=== PATIENT | female | born 1995 | race Caucasian/White ===

== ENCOUNTER → 2019-06-04 | Outpatient (REF) | payer BC ==
[2019-06-04 11:36] LABS: BASO % 0.5 % (0.0-1.0); EOS # 0.1 10^3/uL (0.0-0.5); HEMATOCRIT 40.6 % (36.0-47.0); HEMOGLOBIN 13.6 g/dl (12.0-15.5); LYMPH % 24.7 % (24.0-44.0); MEAN CORPUSCULAR HEMOGLOBIN 28.6 pg (27.0-33.0); MEAN CORPUSCULAR HGB CONC 33.5 g/dl (32.0-36.5); MEAN CORPUSCULAR VOLUME 85.5 fl (80.0-96.0); MONO # 0.5 10^3/uL (0.0-0.8); MONO % 6.2 % (0.0-5.0); NEUTROPHILS # 5.5 10^3/uL (1.5-8.5); NEUTROPHILS % 67.4 % (36.0-66.0); PLATELET COUNT, AUTOMATED 249 10^3/uL (150-450); RED BLOOD COUNT 4.75 10^6/uL (4.00-5.40); WHITE BLOOD COUNT 8.2 10^3/uL (4.0-10.0)
[2019-06-04 11:47] LABS: ALT/SGPT 26 U/L (12-78); BILIRUBIN,TOTAL 0.6 MG/DL (0.2-1.0); BLOOD UREA NITROGEN 14 MG/DL (7-18); CARBON DIOXIDE LEVEL 25 MEQ/L (21-32); CHLORIDE LEVEL 110 MEQ/L (98-107); CHOLESTEROL LEVEL 166 MG/DL (<200); FREE T4 1.07 NG/DL (0.76-1.46); GLOMERULAR FILTRATION RATE > 60.0 (>60); GLUCOSE, FASTING 90 MG/DL (70-100); HDL CHOLESTEROL 33 MG/DL (>40); LDL CHOLESTEROL 101 MG/DL (<100); NON-HDL-C 133 MG/DL; SODIUM LEVEL 140 MEQ/L (136-145); TOTAL PROTEIN 7.5 GM/DL (6.4-8.2); TRIGLYCERIDES LEVEL 158 MG/DL (<150)
== END ==
LOC: M SFHCCLAY 08:19
PROVIDERS: ATTEND Nurse Practitioner Family
DX: E03.9 Hypothyroidism, unspecified (principal); G43.109 Migraine with aura, not intractable, without status migrainosus

== ENCOUNTER → 2019-11-03 | Outpatient (CLI) | payer BC ==
[~2019-11-03] MED LIST: ISOVUE-370 76% 100ML VIAL As Ordered ONE
--- NOTE | 2019-12-01 07:20 | REP ---
HYSTEROSALPINGOGRAM: 14-VIEWS HISTORY: Primary infertility. Fluoroscopy time is 0.3 minutes. Fluoroscopic guidance is provided and fluoroscopic spot films are obtained. FINDINGS: The uterine endometrial cavity is normal in appearance. No filling defect is seen. Isthmic and ampullary segments of the fallopian tubes opacify symmetrically and there is bilateral free spillage into the peritoneum documenting tubal patency. Surgical clips are noted in the right pelvis and right mid-abdomen. IMPRESSION: Normal hysterosalpingogram. Bilateral tubal patency is documented. MTDD
== END ==
LOC: M RADPRO 11:31
PROVIDERS: ATTEND Obstetrics & Gynecology
DX: N97.9 Female infertility, unspecified (principal)
CPT/HCPCS: 58340; 74740; Q9967

== ENCOUNTER → 2020-02-08 | Outpatient (CLI) | payer BC | LOC: M WUC 11:56 | PROVIDERS: ATTEND Obstetrics & Gynecology Reproductive Endocrinology | DX: E28.9 Ovarian dysfunction, unspecified (principal) ==

== ENCOUNTER → 2020-02-22 | Outpatient (CLI) | payer BC | LOC: M LABSMTC 13:49 | PROVIDERS: ATTEND Pediatrics | DX: Z20.828 Contact with and (suspected) exposure to other viral communicable diseases (principal) ==

== ENCOUNTER → 2020-03-30 | Outpatient (REF) | payer BC ==
[2020-03-30 13:53] LABS: ESTRADIOL 95.1 PG/ML; PROGESTERONE 20.38 NG/ML
== END ==
LOC: M LABDRWAD 12:16
PROVIDERS: ATTEND Obstetrics & Gynecology Reproductive Endocrinology
DX: E28.9 Ovarian dysfunction, unspecified (principal)

== ENCOUNTER → 2020-04-04 | Outpatient (REF) | payer BC ==
[2020-04-04 13:25] LABS: PROGESTERONE 20.53 NG/ML
== END ==
LOC: M LABDRWAD 12:26
PROVIDERS: ATTEND Obstetrics & Gynecology Reproductive Endocrinology
DX: Z32.00 Encounter for pregnancy test, result unknown (principal)

== ENCOUNTER → 2020-04-06 | Outpatient (REF) | payer BC ==
[2020-04-06 13:17] LABS: THYROID STIMULATING HORMONE 3.12 uIU/ML (0.358-3.740)
[2020-04-06 13:21] LABS: ESTRADIOL 145.3 PG/ML; PROGESTERONE 17.46 NG/ML
== END ==
LOC: M LABDRWAD 12:21
PROVIDERS: ATTEND Obstetrics & Gynecology Reproductive Endocrinology
DX: Z32.01 Encounter for pregnancy test, result positive (principal)

== ENCOUNTER → 2020-04-11 | Outpatient (REF) | payer BC ==
[2020-04-11 13:51] LABS: PROGESTERONE 15.71 NG/ML
[2020-04-11 13:53] LABS: ESTRADIOL 167.6 PG/ML
== END ==
LOC: M LABDRWAD 12:41
PROVIDERS: ATTEND Obstetrics & Gynecology Reproductive Endocrinology
DX: O09.00 Supervision of pregnancy with history of infertility, unspecified trimester (principal)

== ENCOUNTER → 2020-04-18 | Outpatient (REF) | payer BC ==
[2020-04-18 13:26] LABS: ESTRADIOL 222.6 PG/ML; PROGESTERONE 19.7 NG/ML
== END ==
LOC: M LABDRWAD 10:17
PROVIDERS: ATTEND Obstetrics & Gynecology Reproductive Endocrinology
DX: O09.00 Supervision of pregnancy with history of infertility, unspecified trimester (principal)

== ENCOUNTER → 2020-06-08 | Outpatient (REF) | payer BC ==
[2020-06-08 17:43] LABS: HEMATOCRIT 40.8 % (36.0-47.0); HEMOGLOBIN 13.6 g/dl (12.0-15.5); MEAN CORPUSCULAR HEMOGLOBIN 28.6 pg (27.0-33.0); MEAN CORPUSCULAR HGB CONC 33.3 g/dl (32.0-36.5); MEAN CORPUSCULAR VOLUME 85.9 fl (80.0-96.0); PLATELET COUNT, AUTOMATED 257 10^3/uL (150-450); RED BLOOD COUNT 4.75 10^6/uL (4.00-5.40); WHITE BLOOD COUNT 12.1 10^3/uL (4.0-10.0)
[2020-06-08 18:17] LABS: FREE T4 1.05 NG/DL (0.76-1.46)
[2020-06-08 18:46] LABS: CHLAMYDIA DNA AMPLIFICATION NEGATIVE (NEGATIVE); GC DNA AMPLIFICATION NEGATIVE (NEGATIVE)
[2020-06-08 18:53] LABS: HEPATITIS C VIRUS ABY INDEX 0.1 INDEX (<0.8); HIV 1&2 SCREEN CENTAUR NEGATIVE (NEGATIVE)
== END ==
LOC: M PLALAB 15:01
PROVIDERS: ATTEND Advanced Practice Midwife
DX: O09.812 Supervision of pregnancy resulting from assisted reproductive technology, second trimester (principal); O99.282 Endocrine, nutritional and metabolic diseases complicating pregnancy, second trimester

== ENCOUNTER → 2020-07-20 | Outpatient (CLI) | payer BC ==
--- NOTE | 2020-07-21 06:33 | REP ---
INDICATION: ANATOMY COMPARISON: None. TECHNIQUE: Transabdominal obstetrical ultrasound with color Doppler evaluation. FINDINGS: Examination demonstrates a single live intrauterine in cephalic presentation. motion is identified by technologist. Placenta is noted anterior and grade 1 without evidence for placenta previa or abruption. Amniotic fluid volume is normal. Cervix measures 3.1 cm in length and appears closed.. Gestational age by LMP nineteen weeks 2 days with AUNDREA 12/12/2020. Gestational age by current measurements 19 weeks 2 days with AUNDREA 12/12/2020. FHR equals 152 beats per minute. Estimated weight 277 grams (38thpercentile). Anatomical assessment demonstrates normal structures including cranium, choroid plexus, cavum, cerebellum/posterior fossa, facial features, lungs, four-chamber heart/ventricular outflow tracts, diaphragm, stomach, cord insertion/three-vessel cord, kidneys/bladder, spine, and extremities. Incidental note is made of a maternal periumbilical fat containing hernia a peritoneal defect of approximately 9 mm. IMPRESSION: 1. Single live intrauterine in cephalic presentation demonstrating appropriate estimated weight. Anatomical assessment is complete and normal. 2. Findings suggesting small maternal periumbilical fat containing hernia. <Electronically signed by Juan Manuel Leroy > 07/21/20 [id number]
== END ==
LOC: M WHC 14:31
PROVIDERS: ATTEND Advanced Practice Midwife
DX: Z34.82 Encounter for supervision of other normal pregnancy, second trimester (principal)

== ENCOUNTER → 2020-09-21 | Outpatient (REF) | payer BC ==
[2020-09-21 12:52] LABS: HEMATOCRIT 38.3 % (36.0-47.0); HEMOGLOBIN 12.6 g/dl (12.0-15.5); MEAN CORPUSCULAR HEMOGLOBIN 29.4 pg (27.0-33.0); MEAN CORPUSCULAR HGB CONC 32.9 g/dl (32.0-36.5); MEAN CORPUSCULAR VOLUME 89.3 fl (80.0-96.0); PLATELET COUNT, AUTOMATED 231 10^3/uL (150-450); RED BLOOD COUNT 4.29 10^6/uL (4.00-5.40); WHITE BLOOD COUNT 11.4 10^3/uL (4.0-10.0)
[2020-09-21 13:55] LABS: FREE T4 0.84 NG/DL (0.76-1.46); THYROID STIMULATING HORMONE 1.81 uIU/ML (0.358-3.740)
== END ==
LOC: M PLALAB 10:33 → M SFHCADAM 10:34
PROVIDERS: ATTEND Advanced Practice Midwife
DX: Z36.89 Encounter for other specified antenatal screening (principal); Z3A.25 25 weeks gestation of pregnancy

== ENCOUNTER → 2020-11-10 | Outpatient (REF) | payer BC | LOC: M SFHCWAGY 16:55 | PROVIDERS: ATTEND Advanced Practice Midwife | DX: Z34.93 Encounter for supervision of normal pregnancy, unspecified, third trimester (principal); Z3A.35 35 weeks gestation of pregnancy ==

== ENCOUNTER 2020-12-01 22:09 | Inpatient (IN) | payer BC ==
[~2020-12-01] VITALS: Ht 162.6 cm; Wt 103.5 kg
[2020-12-01] MEDS ORDERED: OXYTOCIN DRIP 30 UNITS in IV 1 EA IV PRN (22:20)
[2020-12-01] MEDS ORDERED: LIDOCAINE 1% MDV 20ML VIAL INFIL PRN (22:20)
[2020-12-01] MEDS ORDERED: CARBOPROST TROMETHAMINE 250 MCG/ML AMP IM PRN (22:20)
[2020-12-01] MEDS ORDERED: OXYTOCIN DRIP 30 UNITS in IV 1 EA IV SCH (22:20)
[2020-12-01] MEDS ORDERED: LR 1,000 ML IV SCH (22:20)
[2020-12-01] MEDS ORDERED: METHYLERGONOVINE MALEATE 0.2 MG/ML VIAL (J2210) IM PRN (22:20)
[2020-12-01] MEDS ORDERED: OXYTOCIN INJ 10 UNITS/ML VIAL (J2590) IM PRN (22:20)
[2020-12-01] MEDS ORDERED: TRANEXAMIC ACID INJection 1,000 MG in NS 100 ML IV PRN (22:20)
--- NOTE | 2020-12-01 22:33 | HPEPDOC ---
Obstetrical History & Physical General Date of Admission Dec 01, 2020 at 22:09 History of Present Illness 25yo G1 at 38w3d by IVF transfer presents with leakage of clear fluid. 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 BREAST: . ABDOMEN: Gravid and non-tender to touch. FETUS: Is vertex (VTX) by sterile vaginal examination (SVE), fetus is vertex (VTX) by Calvin. HEART RATE: Regular rate and rhythm. LUNGS: Clear to auscultation (CTA). Pertinent Laboratoy Data Blood Type: O+ RBC Antibody Screen: Negative HIV: Negative Hepatitis B: Negative Hepatitis C: Negative Rapid Plasma Reagin: Nonreactive Rubella: Immune Chlamydia/Gonorrhea: Negative Group B Streptococcus: Negative Glucose Tolerance Test: 92 Anatomy Ultrasound Placenta Location: Anterior Normal Anatomy: Yes Placenta Previa: No Vaginal Examination Dilation: 1cm Effacement: 70% Station: -2 Cervical Consistency: Soft Cervical Position: Middle Presentation: Cephalic presentation (Grossly ruptured) Assessment Variability: Moderate Accelerations: Positive Tocometer Contractions: Yes Frequency: irregular Assessment/Plan Assessment 25-year-old 1 at 38 weeks 2 days with premature rupture of membranes Reassuring status Plan 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 Group B Streptococcus (GBS) negative. Labs and intravenous (IV) per unit protocol. Counseled on Pitocin and induction of labor (IOL). Anticipate normal spontaneous delivery (). C-S as appropriate. JOSÉ MIGUEL PACHECO MD. Dec 01, 2020 22:33
[2020-12-01 22:40] VITALS: BP 139/86
[2020-12-01] MEDS ORDERED: PRENTAB9 PO (22:42)
[2020-12-01] MEDS ORDERED: LEVO50TA5 PO (22:44)
[2020-12-01] MEDS ORDERED: MAGN400C PO (22:44)
[2020-12-01] MEDS ORDERED: COQ150CH PO (22:44)
[2020-12-01] MEDS ORDERED: FOLTTAB9 PO (22:44)
[2020-12-02] VITALS (29 sets, daily range): BP systolic 105–191; BP diastolic 52–104
[2020-12-02 00:13] LABS: HEMATOCRIT 34.6 % (36.0-47.0); HEMOGLOBIN 11.9 g/dl (12.0-15.5); MEAN CORPUSCULAR HGB CONC 34.4 g/dl (32.0-36.5); MEAN CORPUSCULAR VOLUME 84.4 fl (80.0-96.0); PLATELET COUNT, AUTOMATED 237 10^3/uL (150-450); WHITE BLOOD COUNT 11.6 10^3/uL (4.0-10.0)
[2020-12-02] MEDS ORDERED: LABETALOL 100MG/20ML VIAL IV STA (00:59)
[2020-12-02] MEDS ORDERED: PROMETHAZINE INJ 25 MG/ML VIAL (J2550) IV ONE (01:00)
[2020-12-02] MEDS ORDERED: BUTORPHANOL 2 MG/ML INJ (J0595) IV ONE (01:00)
[2020-12-02 01:14] LABS: ALT/SGPT 19 U/L (12-78); BILIRUBIN,TOTAL 0.3 MG/DL (0.2-1.0); GLOMERULAR FILTRATION RATE > 60.0 (>60); LDH LACTATE DEHYDROGENASE 169 U/L (84-246); URIC ACID 3.7 MG/DL (2.6-6.0)
[2020-12-02] MEDS ORDERED: FENTANYL 2MCG/ML ROPIVACAINE 0.2% IN 0.9% NACL 100ML IVBAG As Ordered ONE (01:40)
[2020-12-02] MEDS ORDERED: ePHEDrine SULFATE 25 MG/5 ML(5MG/ML) SYRINGE As Ordered ONE (04:15)
[2020-12-02] MEDS ORDERED: EPIDURAL/PCA KEYS XX PRN (04:20)
[2020-12-02] MEDS ORDERED: REFRIGERATOR IV KEYS XX PRN (04:20)
[2020-12-02] MEDS ORDERED: LACTATED RINGER'S 1000 ML IV PRN (04:20)
[2020-12-02] MEDS ORDERED: ePHEDrine SULFATE 25 MG/5 ML(5MG/ML) SYRINGE IV PRN (04:20)
[2020-12-02] MEDS ORDERED: NALOXONE INJ 0.4MG/1ML VIAL (J2310 PER 1MG) IV PRN (04:20)
[2020-12-02] MEDS ORDERED: ONDANSETRON 4MG/2ML VIAL IV PRN (04:20)
[2020-12-02] MEDS ORDERED: FENTANYL/ROPIVACAINE/NACL BAG 100 ML EPIDURAL SCH (04:20)
[2020-12-02] MEDS ORDERED: EPIDURAL COMMENT XX SCH (04:20)
[2020-12-02] MEDS ORDERED: diphenhydrAMINE 50MG/ML VIAL (J1200) IV PRN (04:20)
[2020-12-02 09:23] LABS: CORD GAS HCO3 A 21.1 MEQ/L; CORD GAS O2 SAT A 46.1 %; CORD GAS PH A 7.103 UNITS; CORD GAS PO2 A 26.9 mmHg; CORD GAS SBC A 15.6 MEQ/L; CORD GAS TCO2 A 23.2 MEQ/L
[2020-12-02 09:23] LABS: CORD GAS ABE V -7.2; CORD GAS O2 SAT V 69.7 %; CORD GAS PCO2 V 40.9 mmHg; CORD GAS PH V 7.285 UNITS; CORD GAS PO2 V 32.4 mmHg; CORD GAS SBC V 18.1 MEQ/L; CORD GAS TCO2 V 20.3 MEQ/L
[2020-12-02] MEDS ORDERED: OXYTOCIN DRIP 30 UNITS in IV 1 EA IV SCH (09:40)
[2020-12-02] MEDS ORDERED: MEASLES,MUMPS,RUBELLA VACCINE INJ (MMR-II) (90707) SC SCH (09:40)
[2020-12-02] MEDS ORDERED: DOCUSATE SODIUM 100MG CAPSULE PO PRN (09:40)
[2020-12-02] MEDS ORDERED: DIBUCAINE 1% OINTMENT 30GM TOP PRN (09:40)
[2020-12-02] MEDS ORDERED: ACETAMINOPHEN 500 MG TAB PO PRN (09:40)
[2020-12-02] MEDS ORDERED: IBUPROFEN 600MG TAB PO PRN (09:40)
[2020-12-02] MEDS ORDERED: RHOGAM 300 MCG (1500 IU) INJ (J2790) IM SCH (09:40)
[2020-12-02] MEDS ORDERED: IBUPROFEN 800 MG TAB PO PRN (09:40)
--- NOTE | 2020-12-02 12:24 | DN ---
DELIVERY NOTE DATE OF DELIVERY: 12/02/2020 TIME OF : 0852 GENDER: Female APGARS: 7 and 9 LACERATIONS: Second-degree midline laceration ANESTHESIA: ESTIMATED BLOOD LOSS: 600 mL COUNTS: Correct and verified DESCRIPTION OF DELIVERY: Harriet is a 25-year-old 1 para 1-0-0-1 now, who was admitted to labor and delivery with premature rupture of membranes. I.V. Pitocin was started and labor ensued. She used an epidural for her labor coping. She reached complete dilation at 0600. Passive descent was employed and began pushing after 0800. She pushed to a normal spontaneous vaginal delivery of a live female infant in OA position with restitution to LOT position at 0852. There was a nuchal cord x1, loose, that was reduced manually at the time of delivery. The shoulders delivered with gentle downward traction and the corpus immediately followed. 's mouth and nares were bulb suctioned and was placed on the maternal abdomen for stimulation and bonding. The cord was clamped x2 and cut by the father of the baby under my direction. Spontaneous expulsion of an intact placenta with three-vessel cord by Restrepo mechanism was at 0858. Uterine hemostasis achieved with IV Pitocin rapid infusion, uterine fundal massage and Misoprostol 1,000 mcg per rectum. Estimated blood loss 600 mL. Perineum and vagina inspected and noted to have a second-degree midline laceration as well as an extension into the right labia. The laceration was repaired with 3-0 Vicryl Rapide in the usual fashion. The female weighed 7 pounds, 9 ounces (3420 grams), Apgars were 7 and 9. Mom is going to breastfeed her daughter and the family have named her [place]. At the close of delivery, lap counts, needle counts and instrument counts were correct and verified.
[2020-12-02] MEDS: ACETAMINOPHEN TAB 650MG DOSE (2X325MG) PO PRN (17:36)
[2020-12-03] MEDS: ACETAMINOPHEN TAB 650MG DOSE (2X325MG) PO PRN ×3 (01:12→22:58)
[2020-12-03 06:00] VITALS: BP 117/76
[2020-12-03] MEDS: PRENATAL VITAMINS CHEWABLE TABLET PO SCH (08:04)
[2020-12-03] MEDS ORDERED: INFLUENZA QUADRIVALENT PF VACCINE 0.5ML SYRINGE IM ONE (09:00)
--- NOTE | 2020-12-03 11:50 | IPNPDOC ---
Progress Note Date of Service: Dec 03, 2020 Day#: 1 Progress Note SUBJECT: Patient is doing well . Pain is well controlled with PO med ication. She is tolerating a diet. Ambulating and voiding without difficulty. Minimal lochia. Denies headaches, vision changes, RUQ pain. OBJECTIVE: VITAL SIGNS: Within normal limits, afebrile. Alert and oriented times three. Breath sounds clear to auscultation. Heart rate: Regular rate and rhythm, no murmurs, rubs or gallops. Abdomen: Fundus firm at U-2. Soft, NTTP. [Minimal] lochia. ASSESSMENT: Patient doing well on post day #1. Vitals within normal limits, afebrile, hemodynamically stable with no evidence of infection. PLAN: 1. Anticipate discharge tomorrow. 2. Tylenol and Motrin for pain. 3. Encourage breast feeding and ambulation. 4. Routine PP visit in 6 weeks in clinic. 5. Discussed return precautions at length. VS, I&O, 24H, Fishbone Vital Signs/I&O Vital Signs Date Time Temp Pulse Resp B/P (MAP) Pulse Ox O2 Delivery O2 Flow Rate FiO2 12/03/20 06:00 98.1 70 18 117/76 (90) 100 Room Air I&O- Last 24 Hours up to 6 AM 12/03/20 06:00 Intake Total 2903 ml Output Total 1100 ml Balance 1803 ml FLORINDA BLAIR MD Dec 03, 2020 11:50
[2020-12-03 17:36] VITALS: BP 121/62
[2020-12-04 06:10] VITALS: BP 146/96
[2020-12-04 08:00] VITALS: BP 146/96
[2020-12-04] MEDS: PRENATAL VITAMINS CHEWABLE TABLET PO SCH (08:08)
[2020-12-04] MEDS: ACETAMINOPHEN TAB 650MG DOSE (2X325MG) PO PRN ×2 (08:08→12:33)
--- NOTE | 2020-12-04 08:46 | IPNPDOC ---
Progress Note Date of Service: Dec 04, 2020 Day#: 2 Progress Note SUBJECT: Patient is a 25-year-old G 1 P 1 status post uncomplicated vaginal de livery at 38-3/7 weeks' doing well day #2. She has been ambulating, voiding spontaneously without issue and tolerating regular diet. Breast feeding without issue. Reports lochia is like a normal period. Patient is ambulating well. Reports some cramping, well controlled with medication. Voiding and ambulating without difficulty. Denies headaches vision changes or right upper quadrant pain. OBJECTIVE: VITAL SIGNS: Within normal limits, afebrile. Alert and oriented times three. Breath sounds clear to auscultation. Heart rate: Regular rate and rhythm, no murmurs, rubs or gallops. Abdomen: Fundus firm at U-2. Soft, NTTP. Minimal to moderate lochia. ASSESSMENT: Patient is a 18-year-old G 1 P 1 status post uncomplicated spontaneous vaginal delivery after presenting to labor and delivery with spontaneous rupture membranes. Doing well on day 2. Vitals within normal limits, afebrile, hemodynamically stable with no evidence of infection. PLAN: 1. Discharge to home today. 2. Tylenol and Motrin for pain. 3. Encourage breast feeding and ambulation. 4. Patient declined contraception 5. Patient to schedule blood pressure check in 1 week with routine PP visit in 6 weeks in clinic. 6. Discussed return precautions at length. VS, I&O, 24H, Fishbone Vital Signs/I&O Vital Signs Date Time Temp Pulse Resp B/P (MAP) Pulse Ox O2 Delivery O2 Flow Rate FiO2 12/04/20 08:00 97.8 88 18 146/96 99 Room Air FLORINDA BLAIR MD Dec 04, 2020 08:46
[2020-12-04] MEDS ORDERED: ACET-683 PO (08:49)
[2020-12-04] MEDS ORDERED: IBUP-1022 PO (08:49)
[2020-12-04] MEDS ORDERED: DOCU100C16 PO (08:49)
== END 2020-12-04 13:55 | disposition home or self-care (01) | DRG 560 ==
LOC: M LDI 22:09 → M OBS 12-02 14:05
PROVIDERS: ADMIT Obstetrics & Gynecology; ATTEND Obstetrics & Gynecology
PROC: 10E0XZZ Delivery of Products of Conception, External Approach (ICD-10-PCS; principal; 2020-12-02)
PROC: 0KQM0ZZ Repair Perineum Muscle, Open Approach (ICD-10-PCS; 2020-12-02)
DX: O42.02 Full-term premature rupture of membranes, onset of labor within 24 hours of rupture (principal); Z37.0 Single live birth; Z3A.38 38 weeks gestation of pregnancy; O70.1 Second degree perineal laceration during delivery; O69.81X0 Labor and delivery complicated by cord around neck, without compression, not applicable or unspecified

== ENCOUNTER → 2021-03-29 | Outpatient (REF) | payer BC ==
[~2021-03-29] MED LIST changes: +ACET-683 PO; +COQ150CH PO; +DOCU100C16 PO; +FOLTTAB9 PO; +IBUP-1022 PO; -ISOVUE-370 76% 100ML VIAL As Ordered ONE; +LEVO50TA5 PO; +MAGN400C PO; +PRENTAB9 PO
== END ==
LOC: M SFHCWAGY 10:22
PROVIDERS: ATTEND Advanced Practice Midwife
DX: Z12.4 Encounter for screening for malignant neoplasm of cervix (principal)

== ENCOUNTER → 2021-11-24 | Outpatient (REF) | LOC: M EMP 11:37 | PROVIDERS: ATTEND Family Medicine | DX: Z11.52 Encounter for screening for COVID-19 (principal) ==

== ENCOUNTER → 2022-01-04 | Outpatient (REF) | payer BC ==
[2022-01-04 14:22] LABS: BASO % 0.5 % (0.0-1.0); EOS # 0.1 10^3/uL (0.0-0.5); EOS % 1.6 % (0.0-3.0); HEMATOCRIT 41.1 % (36.0-47.0); HEMOGLOBIN 13.7 g/dl (12.0-15.5); LYMPH # 2.1 10^3/uL (1.5-5.0); LYMPH % 28.2 % (24.0-44.0); MEAN CORPUSCULAR HEMOGLOBIN 28.2 pg (27.0-33.0); MEAN CORPUSCULAR HGB CONC 33.3 g/dl (32.0-36.5); MEAN CORPUSCULAR VOLUME 84.6 fl (80.0-96.0); MONO # 0.5 10^3/uL (0.0-0.8); MONO % 5.9 % (2.0-8.0); NEUTROPHILS # 4.8 10^3/uL (1.5-8.5); NEUTROPHILS % 63.4 % (36.0-66.0); PLATELET COUNT, AUTOMATED 233 10^3/uL (150-450); RED BLOOD COUNT 4.86 10^6/uL (4.00-5.40); WHITE BLOOD COUNT 7.6 10^3/uL (4.0-10.0)
[2022-01-04 15:56] LABS: ALBUMIN 4.3 GM/DL (3.2-5.2); ALT/SGPT 29 U/L (12-78); BILIRUBIN,TOTAL 0.6 MG/DL (0.2-1.0); BLOOD UREA NITROGEN 9 MG/DL (7-18); CALCIUM LEVEL 9.5 MG/DL (8.5-10.1); CARBON DIOXIDE LEVEL 24 MEQ/L (21-32); CHLORIDE LEVEL 107 MEQ/L (98-107); CREATININE FOR GFR 0.77 MG/DL (0.55-1.30); GLOMERULAR FILTRATION RATE > 60.0 (>60); GLUCOSE, FASTING 86 MG/DL (70-100); MAGNESIUM LEVEL 2.2 MG/DL (1.8-2.4); SODIUM LEVEL 138 MEQ/L (136-145); TOTAL PROTEIN 7.5 GM/DL (6.4-8.2)
== END ==
LOC: M SFHCADAM 08:00
PROVIDERS: ATTEND Nurse Practitioner Family
DX: E03.9 Hypothyroidism, unspecified (principal); G43.109 Migraine with aura, not intractable, without status migrainosus

== ENCOUNTER → 2022-01-26 | Outpatient (CLI) | payer BC ==
[2022-01-26 13:32] LABS: ESTRADIOL 342.1 PG/ML; PROGESTERONE 31.64 NG/ML
== END ==
LOC: M LAB 12:44
PROVIDERS: ATTEND Obstetrics & Gynecology Reproductive Endocrinology
DX: Z31.83 Encounter for assisted reproductive fertility procedure cycle (principal)

== ENCOUNTER → 2022-01-31 | Outpatient (REF) | payer BC ==
[2022-01-31 14:18] LABS: HCG, SERUM QUANTITATIVE 66.8 MIU/ML (<4.2); PROGESTERONE 21.63 NG/ML
== END ==
LOC: M LABDRWAD 13:15
PROVIDERS: ATTEND Obstetrics & Gynecology Reproductive Endocrinology
DX: Z32.00 Encounter for pregnancy test, result unknown (principal)

== ENCOUNTER → 2022-02-02 | Outpatient (CLI) | payer BC ==
[2022-02-02 11:05] LABS: ESTRADIOL 309.3 PG/ML; HCG, SERUM QUANTITATIVE 106.3 MIU/ML (<4.2); PROGESTERONE 17.09 NG/ML
== END ==
LOC: M LAB 09:53
PROVIDERS: ATTEND Obstetrics & Gynecology Reproductive Endocrinology
DX: Z32.01 Encounter for pregnancy test, result positive (principal)

== ENCOUNTER → 2022-02-05 | Outpatient (CLI) | payer BC ==
[2022-02-05 14:08] LABS: HCG, SERUM QUANTITATIVE 355.5 MIU/ML (<4.2)
[2022-02-05 14:13] LABS: ESTRADIOL 808.9 PG/ML; THYROID STIMULATING HORMONE 2.02 uIU/ML (0.55-4.78)
[2022-02-05 14:17] LABS: PROGESTERONE 17.61 NG/ML
== END ==
LOC: M LABDRWAD 08:00
PROVIDERS: ATTEND Obstetrics & Gynecology Reproductive Endocrinology
DX: Z32.01 Encounter for pregnancy test, result positive (principal)

== ENCOUNTER → 2022-03-16 | Outpatient (REF) | payer BC | LOC: M LABDRWAD 12:30 | PROVIDERS: ATTEND Obstetrics & Gynecology Reproductive Endocrinology | DX: O02.1 Missed abortion (principal) ==

== ENCOUNTER → 2022-03-30 | Outpatient (REF) | payer BC | LOC: M LABDRWAD 12:39 | PROVIDERS: ATTEND Obstetrics & Gynecology Reproductive Endocrinology | DX: O02.1 Missed abortion (principal) ==

== ENCOUNTER → 2022-04-10 | Outpatient (CLI) | payer BC ==
[2022-04-10 13:49] LABS: HCG, SERUM QUANTITATIVE < 2.6 MIU/ML (<4.2)
[2022-04-10 13:52] LABS: FOLLICLE STIMULATING HORMONE 2.8 mIU/ML; LUTEINIZING HORMONE 1.4 mIU/ML
[2022-04-10 13:53] LABS: THYROID STIMULATING HORMONE 2.354 uIU/ML (0.55-4.78)
[2022-04-10 13:54] LABS: ESTRADIOL 96.1 PG/ML
== END ==
LOC: M LABDRWAD 07:57
PROVIDERS: ATTEND Obstetrics & Gynecology Reproductive Endocrinology
DX: Z31.83 Encounter for assisted reproductive fertility procedure cycle (principal)

== ENCOUNTER → 2022-05-28 | Outpatient (REF) | payer BC | LOC: M LABDRWAD 13:13 | PROVIDERS: ATTEND Obstetrics & Gynecology Reproductive Endocrinology | DX: Z01.812 Encounter for preprocedural laboratory examination (principal) ==

== ENCOUNTER → 2022-06-29 | Outpatient (REF) | payer BC ==
[2022-06-29 12:07] LABS: ESTRADIOL 179.3 PG/ML; PROGESTERONE 18.85 NG/ML
== END ==
LOC: M LABDRAWC 11:10
PROVIDERS: ATTEND Obstetrics & Gynecology Reproductive Endocrinology
DX: Z31.41 Encounter for fertility testing (principal)

== ENCOUNTER → 2022-07-04 | Outpatient (CLI) | payer BC ==
[2022-07-04 08:37] LABS: PROGESTERONE 16.96 NG/ML
== END ==
LOC: M LAB 07:38
PROVIDERS: ATTEND Obstetrics & Gynecology Reproductive Endocrinology
DX: Z32.00 Encounter for pregnancy test, result unknown (principal)

== ENCOUNTER → 2022-07-06 | Outpatient (CLI) | payer BC ==
[2022-07-06 13:18] LABS: ESTRADIOL 286.3 PG/ML
[2022-07-06 13:20] LABS: HCG, SERUM QUALITATIVE POSITIVE (NEGATIVE)
[2022-07-06 13:23] LABS: PROGESTERONE 22.53 NG/ML
[2022-07-06 15:37] LABS: HCG, SERUM QUANTITATIVE 348.4 MIU/ML (<4.2)
== END ==
LOC: M LABDRWAD 08:11
PROVIDERS: ATTEND Obstetrics & Gynecology Reproductive Endocrinology
DX: Z32.01 Encounter for pregnancy test, result positive (principal)

== ENCOUNTER → 2022-08-17 | Outpatient (REF) | payer BC | LOC: M LABDRWAD 15:56 | PROVIDERS: ATTEND Obstetrics & Gynecology Reproductive Endocrinology | DX: O02.1 Missed abortion (principal) ==

== ENCOUNTER → 2022-08-28 | Outpatient (REF) | payer BC | LOC: M LABDRWAD 12:37 | PROVIDERS: ATTEND Obstetrics & Gynecology Reproductive Endocrinology | DX: O02.1 Missed abortion (principal) ==

== ENCOUNTER → 2022-09-03 | Outpatient (REF) | payer BC | LOC: M LABDRWAD 12:18 | PROVIDERS: ATTEND Obstetrics & Gynecology Reproductive Endocrinology | DX: Z32.01 Encounter for pregnancy test, result positive (principal) ==

== ENCOUNTER → 2022-10-05 | Outpatient (REF) | payer BC ==
[2022-10-05 14:29] LABS: HCG, SERUM QUANTITATIVE 81.7 MIU/ML (<4.2)
[2022-10-05 14:33] LABS: PROGESTERONE 24.49 NG/ML
== END ==
LOC: M LABDRWAD 12:33
PROVIDERS: ATTEND Obstetrics & Gynecology Reproductive Endocrinology
DX: Z32.00 Encounter for pregnancy test, result unknown (principal)

== ENCOUNTER → 2022-10-08 | Outpatient (REF) | payer BC ==
[2022-10-08 13:49] LABS: HCG, SERUM QUANTITATIVE 248.1 MIU/ML (<4.2)
[2022-10-08 13:53] LABS: THYROID STIMULATING HORMONE 3.02 uIU/ML (0.55-4.78)
[2022-10-08 13:54] LABS: ESTRADIOL 598.9 PG/ML
[2022-10-08 13:55] LABS: PROGESTERONE 24.85 NG/ML
== END ==
LOC: M LABDRWAD 12:27
PROVIDERS: ATTEND Obstetrics & Gynecology Reproductive Endocrinology
DX: O09.00 Supervision of pregnancy with history of infertility, unspecified trimester (principal); Z3A.00 Weeks of gestation of pregnancy not specified

== ENCOUNTER → 2023-01-03 | Outpatient (REF) | payer BC | LOC: M LAB REF 13:31 → M LABDRWAD 13:31 | PROVIDERS: ATTEND Advanced Practice Midwife | DX: Z87.728 Personal history of other specified (corrected) congenital malformations of nervous system and sense organs (principal) ==

== ENCOUNTER → 2023-01-17 | Outpatient (CLI) | payer BC | LOC: M WHC 12:04 | PROVIDERS: ATTEND Advanced Practice Midwife | DX: Z34.92 Encounter for supervision of normal pregnancy, unspecified, second trimester (principal) ==

== ENCOUNTER → 2023-01-22 | Outpatient (CLI) | payer BC ==
[2023-01-22 14:55] LABS: HEMATOCRIT 38.3 % (36.0-47.0); HEMOGLOBIN 12.6 g/dl (12.0-15.5); MEAN CORPUSCULAR HEMOGLOBIN 29.2 pg (27.0-33.0); MEAN CORPUSCULAR HGB CONC 32.9 g/dl (32.0-36.5); MEAN CORPUSCULAR VOLUME 88.9 fl (80.0-96.0); PLATELET COUNT, AUTOMATED 220 10^3/uL (150-450); RED BLOOD COUNT 4.31 10^6/uL (4.00-5.40); WHITE BLOOD COUNT 10.8 10^3/uL (4.0-10.0)
[2023-01-22 15:33] LABS: HIV 1&2 SCREEN NEGATIVE (NEGATIVE)
[2023-01-22 15:42] LABS: HEPATITIS C VIRUS ABY INDEX 0.05 INDEX (<0.8)
[2023-01-22 16:18] LABS: CHLAMYDIA DNA AMPLIFICATION NEGATIVE (NEGATIVE); GC DNA AMPLIFICATION NEGATIVE (NEGATIVE)
== END ==
LOC: M LABDRWAD 10:20
PROVIDERS: ATTEND Advanced Practice Midwife
DX: Z34.92 Encounter for supervision of normal pregnancy, unspecified, second trimester (principal); Z3A.00 Weeks of gestation of pregnancy not specified

== ENCOUNTER → 2023-01-30 | Outpatient (REF) | payer BC ==
[2023-01-30 18:03] LABS: FREE T4 0.98 NG/DL (0.89-1.76)
[2023-01-30 18:04] LABS: THYROID STIMULATING HORMONE 1.72 uIU/ML (0.55-4.78)
== END ==
LOC: M SFHCCLAY 14:38
PROVIDERS: ATTEND Nurse Practitioner Family
DX: E03.9 Hypothyroidism, unspecified (principal)

== ENCOUNTER → 2023-03-13 | Outpatient (REF) | payer BC ==
[2023-03-13 17:11] LABS: HEMATOCRIT 34.8 % (36.0-47.0); HEMOGLOBIN 11.8 g/dl (12.0-15.5); MEAN CORPUSCULAR HEMOGLOBIN 29.1 pg (27.0-33.0); MEAN CORPUSCULAR HGB CONC 33.9 g/dl (32.0-36.5); MEAN CORPUSCULAR VOLUME 85.7 fl (80.0-96.0); PLATELET COUNT, AUTOMATED 223 10^3/uL (150-450); RED BLOOD COUNT 4.06 10^6/uL (4.00-5.40); WHITE BLOOD COUNT 10.3 10^3/uL (4.0-10.0)
[2023-03-13 18:58] LABS: CHLAMYDIA DNA AMPLIFICATION NEGATIVE (NEGATIVE); GC DNA AMPLIFICATION NEGATIVE (NEGATIVE)
== END ==
LOC: M LABDRWAD 16:22
PROVIDERS: ATTEND Obstetrics & Gynecology
DX: O09.812 Supervision of pregnancy resulting from assisted reproductive technology, second trimester (principal)

== ENCOUNTER → 2023-05-17 | Outpatient (REF) | payer BC | LOC: M SFHCWAGY 16:53 | PROVIDERS: ATTEND Specialist | DX: Z3A.36 36 weeks gestation of pregnancy (principal) ==

== ENCOUNTER → 2023-06-05 | Outpatient (CLI) | payer BC ==
[~2023-06-05] MED LIST changes: +LEVO75TA4 PO
[2023-06-05 14:05] LABS: HEMATOCRIT 33.4 % (36.0-47.0); HEMOGLOBIN 10.9 g/dl (12.0-15.5); MEAN CORPUSCULAR HEMOGLOBIN 26.8 pg (27.0-33.0); MEAN CORPUSCULAR HGB CONC 32.6 g/dl (32.0-36.5); MEAN CORPUSCULAR VOLUME 82.1 fl (80.0-96.0); PLATELET COUNT, AUTOMATED 206 10^3/uL (150-450); RED BLOOD COUNT 4.07 10^6/uL (4.00-5.40); WHITE BLOOD COUNT 9.2 10^3/uL (4.0-10.0)
[2023-06-05 14:31] LABS: CREATININE,RANDOM URINE 55.2 MG/DL
[2023-06-05 14:32] LABS: TOTAL PROTEIN,RANDOM URINE < 6.0 MG/DL (0.0-14.0); URIC ACID 4.2 MG/DL (3.1-7.8)
[2023-06-05 14:34] LABS: LDH LACTATE DEHYDROGENASE 142 U/L (120-246)
[2023-06-05 14:35] LABS: ALT/SGPT 11 U/L (7.0-40); AST/SGOT < 8 U/L (<34); BILIRUBIN,TOTAL 0.4 MG/DL (0.3-1.2); CREATININE FOR GFR 0.58 MG/DL (0.55-1.30); GLOMERULAR FILTRATION RATE > 60.0 (>60)
== END ==
LOC: M PLALAB 11:10
PROVIDERS: ATTEND Advanced Practice Midwife
DX: Z34.83 Encounter for supervision of other normal pregnancy, third trimester (principal)

== ENCOUNTER 2023-06-09 20:12 | Inpatient (IN) | payer BC ==
[~2023-06-09] VITALS: Ht 162.6 cm; Wt 111.6 kg
[~2023-06-09 20:12] MED LIST changes: -LEVO75TA4 PO
[2023-06-09 20:30] VITALS: BP 136/81
[2023-06-09] MEDS ORDERED: HOME MED LIST COMPLETE! XX SCH (20:35)
[2023-06-09] MEDS: LACTATED RINGER'S 1000 ML IV STA (20:56)
[2023-06-09] MEDS ORDERED: TRANEXAMIC ACID INJection 1,000 MG in NS 100 ML IV PRN (21:00)
[2023-06-09] MEDS ORDERED: METHYLERGONOVINE MALEATE 0.2MG/ML 1ML VIAL IM PRN (21:00)
[2023-06-09] MEDS ORDERED: CARBOPROST TROMETHAMINE 250 MCG/ML AMP IM PRN (21:00)
[2023-06-09] MEDS ORDERED: OXYTOCIN DRIP 30 UNITS in IV 1 EA IV PRN (21:00)
[2023-06-09] MEDS ORDERED: LIDOCAINE 1% MDV 20ML VIAL INFIL PRN (21:00)
[2023-06-09] MEDS ORDERED: LEVO75TA4 PO (21:28)
[2023-06-09] MEDS: LR 1,000 ML IV SCH (21:32)
[2023-06-09] MEDS: OXYTOCIN DRIP 30 UNITS in IV 1 EA IV SCH (21:33)
[2023-06-09 21:52] LABS: RED BLOOD COUNT 3.79 10^6/uL (4.00-5.40); WHITE BLOOD COUNT 7.9 10^3/uL (4.0-10.0)
[2023-06-09 21:53] LABS: HEMATOCRIT 30.2 % (36.0-47.0); HEMOGLOBIN 10.1 g/dl (12.0-15.5); MEAN CORPUSCULAR HEMOGLOBIN 26.6 pg (27.0-33.0); MEAN CORPUSCULAR HGB CONC 33.4 g/dl (32.0-36.5); MEAN CORPUSCULAR VOLUME 79.7 fl (80.0-96.0); PLATELET COUNT, AUTOMATED 192 10^3/uL (150-450)
[2023-06-09] MEDS: FAMOTIDINE 20 MG TAB PO PRN (22:25)
[2023-06-09] MEDS: CALCIUM CARBONATE 500 MG CHEW U/D PO PRN (22:25)
[2023-06-09 23:02] VITALS: BP 113/66
[2023-06-09 23:32] VITALS: BP 124/73
[2023-06-10 00:02] VITALS: BP 125/74
[2023-06-10 00:32] VITALS: BP 123/71
[2023-06-10 01:04] VITALS: BP 131/72
[2023-06-10 01:53] VITALS: BP 136/72
[2023-06-10] MEDS ORDERED: ePHEDrine SULFATE 25 MG/5 ML(5MG/ML) SYRINGE IVP PRN (02:05)
[2023-06-10] MEDS ORDERED: ONDANSETRON 4MG 2ML VIAL IV PRN ×2 (02:05→05:00)
[2023-06-10] MEDS ORDERED: NALOXONE INJ 0.4MG/1ML VIAL IV PRN (02:05)
[2023-06-10] MEDS ORDERED: LR 500 ML IV PRN (02:05)
[2023-06-10] MEDS ORDERED: EPIDURAL/PCA KEYS XX PRN (02:05)
[2023-06-10] MEDS ORDERED: diphenhydrAMINE 50MG/ML VIAL IV PRN (02:05)
[2023-06-10] MEDS: FENTANYL/ROPIVACAINE/NACL BAG 100 ML EPIDURAL SCH (02:30)
[2023-06-10] MEDS ORDERED: IBUPROFEN 600MG TAB PO PRN (05:00)
[2023-06-10] MEDS ORDERED: DOCUSATE SODIUM 100MG CAPSULE PO PRN (05:00)
[2023-06-10] MEDS ORDERED: ACETAMINOPHEN TAB 650MG DOSE (2X325MG) PO PRN (05:00)
[2023-06-10] MEDS: LR 1,000 ML IV SCH (05:00)
[2023-06-10] MEDS ORDERED: CALCIUM CARBONATE 500 MG CHEW U/D PO PRN (05:00)
[2023-06-10] MEDS ORDERED: METHYLERGONOVINE MALEATE 0.2 MG TAB PO PRN (05:00)
[2023-06-10] MEDS ORDERED: RHOGAM 300MCG (1500IU) INJ IM SCH (05:00)
[2023-06-10] MEDS ORDERED: ANUSOL HC CREAM 30GM TOP PRN (05:00)
[2023-06-10] MEDS: OXYTOCIN DRIP 30 UNITS in IV 1 EA IV SCH (05:00)
[2023-06-10 07:30] VITALS: BP 122/75; O2SAT 99
[2023-06-10] MEDS: LEVOTHYROXINE 75MCG TABLET (0.075MG) PO SCH (08:34)
[2023-06-10] MEDS: PRENATAL VITAMINS CHEWABLE TABLET PO SCH (08:34)
[2023-06-10] MEDS ORDERED: PRENATAL VITAMINS CHEWABLE TABLET PO SCH (09:00)
[2023-06-10] MEDS ORDERED: LEVOTHYROXINE 75MCG TABLET (0.075MG) PO SCH (09:00)
[2023-06-10] MEDS ORDERED: DEXTROSE 15GM (40%) TUBE (GLUTOSE 15) BUC ONE (09:30)
[2023-06-10] MEDS: OMEPRAZOLE 20MG CAP PO SCH (15:45)
[2023-06-10] MEDS: IBUPROFEN 800 MG TAB PO PRN (15:45)
[2023-06-10 18:00] VITALS: BP 129/68; O2SAT 96
[2023-06-10] MEDS: ACETAMINOPHEN 500 MG TAB PO PRN (20:00)
[2023-06-10] MEDS: DIBUCAINE 1% OINTMENT 30GM TOP PRN (20:05)
[2023-06-11 06:00] VITALS: BP 132/80; O2SAT 98
[2023-06-11] MEDS: BOOSTRIX VACCINE (TETANUS/DIPHTH/ACEL. PERTUSSIS) 0.5ML SYR IM.IMMUN ONE (10:04)
[2023-06-12] MEDS ORDERED: MEASLES,MUMPS,RUBELLA VACCINE INJ (MMR-II) SC.IMMUN ONE (09:00)
== END 2023-06-11 15:10 | disposition home or self-care (01) | DRG 560 ==
LOC: M LDI 20:12 → M OBS 06-10 07:21
PROVIDERS: ADMIT Obstetrics & Gynecology; ATTEND Obstetrics & Gynecology
PROC: 3E033VJ Introduction of Other Hormone into Peripheral Vein, Percutaneous Approach (ICD-10-PCS; 2023-06-09)
PROC: 10E0XZZ Delivery of Products of Conception, External Approach (ICD-10-PCS; principal; 2023-06-10)
PROC: 0KQM0ZZ Repair Perineum Muscle, Open Approach (ICD-10-PCS; 2023-06-10)
DX: O70.1 Second degree perineal laceration during delivery (principal); Z37.0 Single live birth; Z3A.39 39 weeks gestation of pregnancy

== ENCOUNTER → 2023-12-09 | Outpatient (CLI) | payer BC ==
[~2023-12-09] MED LIST changes: +GASTROGRAFIN SOLUTION 30ML As Ordered ONE; +ISOVUE-370 76% 100ML VIAL As Ordered ONE; +LEVO75TA4 PO
[2023-12-09 11:58] LABS: URINE PREG TEST NEGATIVE (NEGATIVE)
== END ==
LOC: M RAD 10:44
PROVIDERS: ATTEND Nurse Practitioner Family
DX: K42.0 Umbilical hernia with obstruction, without gangrene (principal); R10.9 Unspecified abdominal pain

== ENCOUNTER → 2023-12-30 | Outpatient (REF) | payer BC ==
[~2023-12-30] MED LIST changes: -GASTROGRAFIN SOLUTION 30ML As Ordered ONE; -ISOVUE-370 76% 100ML VIAL As Ordered ONE
[2023-12-30 12:34] LABS: FREE T4 1.35 NG/DL (0.89-1.76); THYROID STIMULATING HORMONE 1.534 uIU/ML (0.55-4.78)
== END ==
LOC: M SFHCCLAY 07:56
PROVIDERS: ATTEND Nurse Practitioner Family
DX: E03.9 Hypothyroidism, unspecified (principal)

== ENCOUNTER 2024-02-28 09:02 | Observation (INO) | payer BC ==
[~2024-02-28] VITALS: Ht 163.8 cm; Wt 98.9 kg
[~2024-02-28 09:02] MED LIST changes: +CYAN500T14 PO; +MAGN200T PO; +VITA100093 PO
[2024-02-28] MEDS: NS (Normal Saline) 0.9% 1,000 ML IV SCH ×2 (09:56→12:35)
[2024-02-28] MEDS ORDERED: fentaNYL 100 MCG/2 ML INJECTION As Ordered ONE (10:02)
[2024-02-28] MEDS ORDERED: MIDAZOLAM INJ 2MG/2ML VIAL As Ordered ONE (10:02)
[2024-02-28] MEDS ORDERED: propofoL 200 MG/20 ML VIAL As Ordered ONE (10:03)
[2024-02-28] MEDS ORDERED: ROCURONIUM BROMIDE 50MG/5ML VIAL As Ordered ONE (10:03)
[2024-02-28] MEDS ORDERED: LIDOCAINE 2% 100MG/5ML SDV (FOR ANES.) As Ordered ONE (10:03)
[2024-02-28] MEDS ORDERED: ONDANSETRON 4MG 2ML VIAL As Ordered ONE (10:03)
[2024-02-28] MEDS ORDERED: SUGAMMADEX SODIUM 500 MG/5 ML VIAL (BRIDION) As Ordered ONE (10:03)
[2024-02-28] MEDS ORDERED: ACETAMINOPHEN 1000MG/100ML IV BAG As Ordered ONE (10:10)
[2024-02-28] MEDS: ceFAZolin SOD 2 GM in IV 1 EA IV ONE (11:30)
[2024-02-28] MEDS ORDERED: KETOROLAC 60MG 2ML VIAL As Ordered ONE (12:06)
[2024-02-28] MEDS ORDERED: fentaNYL 100 MCG/2 ML INJECTION IV PRN (12:35)
[2024-02-28] MEDS ORDERED: oxyCODONE 5MG TAB PO PRN (12:35)
[2024-02-28] MEDS ORDERED: ONDANSETRON 4MG 2ML VIAL IV PRN (12:35)
[2024-02-28] MEDS ORDERED: HYDROMORPHONE HCL 0.5 MG/ 0.5 ML SYRINGE IV PRN (12:35)
[2024-02-28] MEDS: oxyCODONE 5MG TAB PO PRN (14:53)
[2024-02-28] MEDS: SIMETHICONE 80MG CHEW TAB PO ONE (15:01)
[2024-02-28] MEDS: NS 500 ML IV ONE (16:10)
[2024-02-28 18:40] VITALS: BP 96/53; TEMP 97.3; O2SAT 96
[2024-02-28 19:43] VITALS: BP 116/62; TEMP 97; O2SAT 96
[2024-02-28] MEDS: ACETAMINOPHEN 500 MG TAB PO PRN (22:26)
[2024-02-29 04:30] VITALS: BP 144/74; TEMP 98.1; O2SAT 97
== END 2024-02-29 12:05 | disposition home or self-care (01) ==
LOC: M SDC 09:02 → M MS5PR 18:05
PROVIDERS: ADMIT Surgery; ATTEND Surgery
DX: K43.0 Incisional hernia with obstruction, without gangrene (principal); E03.9 Hypothyroidism, unspecified; K21.9 Gastro-esophageal reflux disease without esophagitis; G43.909 Migraine, unspecified, not intractable, without status migrainosus; Z79.899 Other long term (current) drug therapy
CPT/HCPCS: 49594; 81025; C1781; J0131; J0665; J0690; J1100; J1885; J2250; J2405; J3010; S2900

== ENCOUNTER → 2024-03-16 | Outpatient (CLI) | payer BC | LOC: M SOG 07:57 | PROVIDERS: ATTEND Physician Assistant | DX: M25.521 Pain in right elbow (principal); M25.522 Pain in left elbow ==

== ENCOUNTER → 2024-07-17 | Outpatient (CLI) | payer BC ==
[2024-07-17 07:41] LABS: ESTRADIOL 200.5 PG/ML; PROGESTERONE 13.95 NG/ML
== END ==
LOC: M LAB 06:44
PROVIDERS: ATTEND Obstetrics & Gynecology Reproductive Endocrinology
DX: Z31.49 Encounter for other procreative investigation and testing (principal)

== ENCOUNTER → 2024-07-22 | Outpatient (CLI) | payer BC ==
[2024-07-22 07:51] LABS: HCG, SERUM QUANTITATIVE 28.2 MIU/ML (<4.2)
[2024-07-22 07:55] LABS: PROGESTERONE 12.26 NG/ML
== END ==
LOC: M LAB 06:47
PROVIDERS: ATTEND Obstetrics & Gynecology Reproductive Endocrinology
DX: Z32.00 Encounter for pregnancy test, result unknown (principal)

== ENCOUNTER → 2024-07-24 | Outpatient (CLI) | payer BC ==
[2024-07-24 08:13] LABS: HCG, SERUM QUANTITATIVE 59.1 MIU/ML (<4.2)
[2024-07-24 08:17] LABS: ESTRADIOL 428.2 PG/ML; PROGESTERONE 11.12 NG/ML; THYROID STIMULATING HORMONE 3.027 uIU/ML (0.55-4.78)
== END ==
LOC: M LAB 07:11
PROVIDERS: ATTEND Obstetrics & Gynecology Reproductive Endocrinology
DX: Z32.01 Encounter for pregnancy test, result positive (principal)

== ENCOUNTER → 2024-07-27 | Outpatient (CLI) | payer BC ==
[2024-07-27 07:19] LABS: PROGESTERONE 23.2 NG/ML
== END ==
LOC: M LAB 06:11
PROVIDERS: ATTEND Obstetrics & Gynecology Reproductive Endocrinology
DX: Z32.01 Encounter for pregnancy test, result positive (principal)

== ENCOUNTER → 2024-10-21 | Outpatient (CLI) | payer BC ==
[2024-10-21 17:51] LABS: PLATELET COUNT, AUTOMATED 248 10^3/uL (150-450)
[2024-10-21 18:34] LABS: HIV 1&2 SCREEN NEGATIVE (NEGATIVE)
[2024-10-21 18:41] LABS: Trichomonas vaginalis (AMP) NOT DETECTED (NEGATIVE)
[2024-10-21 18:42] LABS: HEPATITIS C VIRUS ABY INDEX < 0.02 INDEX (<0.8)
[2024-10-21 19:05] LABS: GC DNA AMPLIFICATION NEGATIVE (NEGATIVE)
== END ==
LOC: M PLALAB 15:57
PROVIDERS: ATTEND Advanced Practice Midwife
DX: Z34.82 Encounter for supervision of other normal pregnancy, second trimester (principal)

== ENCOUNTER → 2024-11-20 | Outpatient (REF) | payer BC ==
[~2024-11-20] MED LIST changes: -IBUP-1022 PO; +IBUP600T42 PO
[2024-11-20 13:26] LABS: FREE T4 1.18 NG/DL (0.89-1.76)
== END ==
LOC: M SFHCCLAY 07:33
PROVIDERS: ATTEND Nurse Practitioner Family
DX: E03.9 Hypothyroidism, unspecified (principal)

== ENCOUNTER → 2024-11-25 | Outpatient (CLI) | payer BC | LOC: M RAD 15:15 | PROVIDERS: ATTEND Advanced Practice Midwife | DX: Z34.82 Encounter for supervision of other normal pregnancy, second trimester (principal) ==

== ENCOUNTER → 2025-01-13 | Outpatient (CLI) | payer BC ==
[2025-01-13 11:49] LABS: GLUCOSE CHALLENGE TEST 1 HOUR 106 MG/DL (LESS THAN 140)
[2025-01-13 11:50] LABS: PLATELET COUNT, AUTOMATED 194 10^3/uL (150-450)
[2025-01-13 12:24] LABS: HIV 1&2 SCREEN NEGATIVE (NEGATIVE)
[2025-01-13 12:32] LABS: HEPATITIS C VIRUS ABY INDEX 0.02 INDEX (<0.8)
[2025-01-13 13:07] LABS: Trichomonas vaginalis (AMP) NOT DETECTED (NEGATIVE)
[2025-01-13 13:31] LABS: GC DNA AMPLIFICATION NEGATIVE (NEGATIVE)
== END ==
LOC: M PLALAB 07:44
PROVIDERS: ATTEND Nurse Practitioner Family
DX: Z34.83 Encounter for supervision of other normal pregnancy, third trimester (principal)

== ENCOUNTER → 2025-01-13 | Outpatient (CLI) | payer BC | LOC: M WHC 06:51 | PROVIDERS: ATTEND Advanced Practice Midwife | DX: Z34.82 Encounter for supervision of other normal pregnancy, second trimester (principal); Z3A.29 29 weeks gestation of pregnancy ==

== ENCOUNTER → 2025-02-15 | Outpatient (REF) | payer BC ==
[2025-02-15 12:39] LABS: FREE T4 1.13 NG/DL (0.89-1.76)
== END ==
LOC: M SFHCCLAY 07:00
PROVIDERS: ATTEND Nurse Practitioner Family
DX: E03.9 Hypothyroidism, unspecified (principal)

== ENCOUNTER → 2025-03-03 | Outpatient (REF) | payer BC | LOC: M SFHCWAGY 12:28 | PROVIDERS: ATTEND Advanced Practice Midwife | DX: Z34.93 Encounter for supervision of normal pregnancy, unspecified, third trimester (principal); Z3A.36 36 weeks gestation of pregnancy ==